=== PATIENT | female | born 1965 | race Caucasian/White ===

== ENCOUNTER 2022-11-09 22:36 | Emergency (ER) | payer SELFPAY ==
[~2022-11-09] VITALS: Ht 162.6 cm; Wt 77.1 kg
[2022-11-09 22:54] VITALS: BP 122/80
--- NOTE | 2022-11-09 22:55 | NUR ---
BIBS C/O L RING FINGER SWELLING AND BRUISING X1900 DENIES ANY TRAUMA. PATIENT IS AAOX4, AMBULATORY, ABLE TO MAKE NEEDS KNOWN. PLACED COMFORTABLY IN BED. VITALS CHECKED.
[2022-11-09] MEDS ORDERED: IBUPROFEN 400 MG TABLET PO ONE (23:00)
--- NOTE | 2022-11-09 23:03 | NUR ---
Edison irvin in ED - 11/09/22 at 2303 by ROBINSON XRAY DONE AT BEDSIDE
--- NOTE | 2022-11-09 23:03 | NUR ---
XRAY DONE AT BEDSIDE
--- NOTE | 2022-11-09 23:03 | NUR ---
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
[2022-11-09] MEDS ORDERED: IBUPROFEN 400 MG TABLET ONE (23:05)
--- NOTE | 2022-11-10 00:44 | NUR ---
Patient discharged to home in stable condition. Written and verbal after care instructions given. Patient verbalizes understanding of instruction.
== END 2022-11-10 00:45 | disposition home or self-care (01) ==
LOC: ER 22:39
DX: S60.042A Contusion of left ring finger without damage to nail, initial encounter (principal); E78.5 Hyperlipidemia, unspecified; X58.XXXA Exposure to other specified factors, initial encounter; Y93.89 Activity, other specified; Y92.89 Other specified places as the place of occurrence of the external cause; Y99.8 Other external cause status
CPT/HCPCS: 73140-TC